=== PATIENT | male | born 1950 | race Caucasian/White ===

== ENCOUNTER 2019-05-24 11:49 | Emergency (ER) | payer MEDICARE, OTHER ==
[~2019-05-24] VITALS: Ht 175.3 cm; Wt 75.4 kg
--- NOTE | 2019-05-24 12:40 | Diagnostic Imaging Report ---
INDICATION: Fall. COMPARISON: None available. TECHNIQUE: Single radiograph of the chest dated May 24, 2019. FINDINGS: Pacer device is present with a battery pack overlying the left chest. Postsurgical changes of a CABG. The cardiac silhouette is within normal limits in size. No significant pulmonary vascular congestion. The lungs are clear. No pleural effusion. No pneumothorax. No acute osseous abnormality. IMPRESSION: Postsurgical changes without acute cardiopulmonary abnormality. Dictated by: Dictated on workstation # [id number]
--- NOTE | 2019-05-24 12:48 | Diagnostic Imaging Report ---
PROCEDURE: CT head and CT cervical spine without contrast. TECHNIQUE: Multiple contiguous axial images were obtained through the brain and cervical spine without the use of intravenous contrast. Sagittal and coronal reformations through the cervical spine were then performed. Auto Exposure Controls were utilized during the CT exam to meet ALARA standards for radiation dose reduction. INDICATION: Fall with head injury. COMPARISON: None. FINDINGS: CT head: The ventricles and cortical sulci are diffusely prominent, compatible with age-related volume loss. There are confluent areas of abnormal, low attenuation in the periventricular white matter. This is consistent with small vessel ischemic changes; age-indeterminate. There is no prior study available for comparison. There is no midline shift or mass-effect. No acute intra-axial hemorrhage is seen. There are no abnormal areas of increased or decreased density to suggest acute hemorrhage or edema. No extra-axial masses or collections are present. The bony calvarium is intact. The visualized paranasal sinuses are unremarkable. The mastoid air cells are partially opacified on the left. CT cervical spine: Static alignment of the lumbar spine is maintained. There is no significant anteroretrolisthesis. There is no evidence of jumped facets. Vertebral body heights are maintained. There is no evidence of acute fracture. No bony fragments are seen within the spinal canal. There are multilevel degenerative changes consistent with intervertebral disc height loss with anterior and posterior disc osteophyte complex formations, as well as multilevel facet arthropathy. These changes appear greatest at the C5-C6 and C6-C7 level. Pre and paravertebral soft tissue structures are unremarkable. Included portions of lung apices are clear. IMPRESSION: 1. No acute intracranial abnormality. No CT evidence of mass, acute infarct or intracranial hemorrhage. 2. Small vessel ischemic changes in the periventricular and subcortical white matter; likely chronic. 3. No acute fracture or dislocation of cervical spine. 4. Multilevel degenerative changes, greatest at C5-C6 and C6-C7. Dictated by: Dictated on workstation # [id number]
[2019-05-24 12:59] LABS: HEMATOCRIT 41 % (40-54); HEMOGLOBIN 13.2 G/DL (13.3-17.7); MEAN CORPUSCULAR HEMOGLOBIN 29 PG (25-34); MEAN CORPUSCULAR HGB CONC 32 G/DL (32-36); MEAN CORPUSCULAR VOLUME 90 FL (80-99); WHITE BLOOD COUNT 11.6 10^3/uL (4.3-11.0)
[2019-05-24 13:00] LABS: BASOPHILS % (AUTO) 0 % (0-10); EOSINOPHILS # (AUTO) 0.1 10^3/uL (0.0-0.3); EOSINOPHILS % (AUTO) 1 % (0-10); LYMPHOCYTES # (AUTO) 4.9 X 10^3 (1.0-4.0); LYMPHOCYTES % (AUTO) 43 % (12-44); MEAN PLATELET VOLUME 9.6 FL (7.4-10.4); MONOCYTES # (AUTO) 0.9 X 10^3 (0.0-1.0); MONOCYTES % (AUTO) 8 % (0-12); NEUTROPHILS # (AUTO) 5.6 X 10^3 (1.8-7.8); NEUTROPHILS % (AUTO) 48 % (42-75); PLATELET COUNT 231 10^3/uL (130-400); RED CELL DISTRIBUTION WIDTH 13.8 % (10.0-14.5)
--- NOTE | 2019-05-24 13:14 | ED General ---
General Chief Complaint: Trauma-Non Activation Stated Complaint: FALL; TREMORS; HEAD INJ Nursing Triage Note: Patient's states patient has advanced Alzheimer's disease, states patient fell Friday from a barstool and today at 3:30 am fell and pulled a chair over onto himself. She states patient has had generalized tremors for the last 3 hours, states this is a new problem for patient. She also states patient did not have previous problems with frequent falls and that this is a new problem as well. Nursing Sepsis Screen: No Definite Risk Source of Information: Patient, Spouse Exam Limitations: Other (dementia) History of Present Illness Date Seen by Provider: May 24, 2019 Time Seen by Provider: 12:30 Initial Comments The patient is a pleasant 69-year-old male presents for evaluation after a fall. The patient's spouse is the primary historian as the patient has a history of Alzheimer's disease. On Friday the patient fell off a barstool and then today around 3:30 AM the patient fell and pulled a chair on top of himself. His states that approximately 45 minutes to an hour later he developed some tremors which lasted 3 hours. She denies ever seeing similar tremors previously. During the tremors the patient was fully awake and alert and able to speak normally. The patient did not lose consciousness from the fall and has denied any ankle complaints to his . Upon arrival the patient has no complaints. Timing/Duration: 1-2 Days Severity: Mild Allergies and Home Medications Allergies Coded Allergies: No Known Drug Allergies (Unverified , 05/24/19) Patient Home Medication List Home Medication List Reviewed: Yes Review of Systems Review of Systems Constitutional: no symptoms reported EENTM: no symptoms reported; No blurred vision, No double vision, No throat pain Respiratory: no symptoms reported; No short of breath, No stridor Cardiovascular: no symptoms reported; No edema, No palpitations, No syncope Gastrointestinal: no symptoms reported; No diarrhea, No nausea Genitourinary: no symptoms reported; No hematuria, No pain Musculoskeletal: no symptoms reported Skin: no symptoms reported Psychiatric/Neurological: No Symptoms Reported, See HPI; Denies Paresthesia, Denies Seizure, Denies Tingling Hematologic/Lymphatic: No Symptoms Reported, See HPI; Denies Anemia, Denies Blood Clots, Denies Other Immunological/Allergic: no symptoms reported; denies see HPI, denies transplant Past Tcjtisf-Gthafj-Qnsbem Hx Past Med/Social Hx: Reviewed Nursing Past Med/Soc Hx Patient Social History Recent Foreign Travel: No Contact w/Someone Who Travel: No Recent Infectious Disease Expo: No Physical Exam Vital Signs Vital Signs - First Documented Capillary Refill : Less Than 3 Seconds Height, Weight, BMI Height: '" Weight: lbs. oz. kg; 24.00 BMI Method: General Appearance: No Apparent Distress, WD/WN HEENT: PERRL/EOMI, Pharynx Normal Neck: Full Range of Motion, Non Tender, Supple Respiratory: Chest Non Tender, Lungs Clear, Normal Breath Sounds, No Accessory Muscle Use, No Respiratory Distress Cardiovascular: Regular Rate, Rhythm, No Edema, No Murmur Gastrointestinal: Normal Bowel Sounds, No Pulsatile Mass, Non Tender, Soft Extremity: Normal Capillary Refill, Normal Range of Motion, Non Tender Neurologic/Psychiatric: Alert, No Motor/Sensory Deficits, Normal Mood/Affect Skin: Normal Color, Warm/Dry Progress/Results/Core Measures Suspected Sepsis Recent Fever Within 48 Hours: No Infection Criteria Present: None New/Unexplained Altered Menta: No Sepsis Screen: No Definite Risk SIRS Temperature: Pulse: 62 Respiratory Rate: 20 Laboratory Tests 05/24/19 12:35: White Blood Count 11.6H Blood Pressure 100 /69 Mean: 79 Laboratory Tests 05/24/19 12:35: Creatinine 1.02, Platelet Count 231, Total Bilirubin 0.5 Results/Orders Lab Results Laboratory Tests Test 05/24/19 12:35 05/24/19 13:00 Range/Units White Blood Count 11.6 H 4.3-11.0 10^3/uL Red Blood Count 4.53 4.35-5.85 10^6/uL Hemoglobin 13.2 L 13.3-17.7 G/DL Hematocrit 41 40-54 % Mean Corpuscular Volume 90 80-99 FL Mean Corpuscular Hemoglobin 29 25-34 PG Mean Corpuscular Hemoglobin Concent 32 32-36 G/DL Red Cell Distribution Width 13.8 10.0-14.5 % Platelet Count 231 130-400 10^3/uL Mean Platelet Volume 9.6 7.4-10.4 FL Neutrophils (%) (Auto) 48 42-75 % Lymphocytes (%) (Auto) 43 12-44 % Monocytes (%) (Auto) 8 0-12 % Eosinophils (%) (Auto) 1 0-10 % Basophils (%) (Auto) 0 0-10 % Neutrophils # (Auto) 5.6 1.8-7.8 X 10^3 Lymphocytes # (Auto) 4.9 H 1.0-4.0 X 10^3 Monocytes # (Auto) 0.9 0.0-1.0 X 10^3 Eosinophils # (Auto) 0.1 0.0-0.3 10^3/uL Basophils # (Auto) 0.0 0.0-0.1 10^3/uL Sodium Level 141 135-145 MMOL/L Potassium Level 4.3 3.6-5.0 MMOL/L Chloride Level 101 98-107 MMOL/L Carbon Dioxide Level 27 21-32 MMOL/L Anion Gap 13 5-14 MMOL/L Blood Urea Nitrogen 21 H 7-18 MG/DL Creatinine 1.02 0.60-1.30 MG/DL Estimat Glomerular Filtration Rate > 60 BUN/Creatinine Ratio 21 Glucose Level 81 70-105 MG/DL Calcium Level 9.2 8.5-10.1 MG/DL Corrected Calcium 9.0 8.5-10.1 MG/DL Magnesium Level 2.2 1.6-2.4 MG/DL Total Bilirubin 0.5 0.1-1.0 MG/DL Aspartate Amino Transf (AST/SGOT) 23 5-34 U/L Alanine Aminotransferase (ALT/SGPT) 29 0-55 U/L Alkaline Phosphatase 64 40-136 U/L Troponin I < 0.30 <0.30 NG/ML Total Protein 6.7 6.4-8.2 GM/DL Albumin 4.2 3.2-4.5 GM/DL Urine Color YELLOW Urine Clarity CLEAR Urine pH 6.5 5-9 Urine Specific Richardson 1.010 L 1.016-1.022 Urine Protein NEGATIVE NEGATIVE Urine Glucose (UA) NEGATIVE NEGATIVE Urine Ketones NEGATIVE NEGATIVE Urine Nitrite NEGATIVE NEGATIVE Urine Bilirubin NEGATIVE NEGATIVE Urine Urobilinogen 0.2 NORMAL MG/DL Urine Leukocyte Esterase NEGATIVE NEGATIVE Urine RBC (Auto) NEGATIVE NEGATIVE Urine RBC NONE /HPF Urine WBC NONE /HPF Urine Squamous Epithelial Cells RARE /HPF Urine Crystals NONE /LPF Urine Bacteria NONE /HPF Urine Casts NONE /LPF Urine Mucus TRACE /LPF Urine Culture Indicated NO My Orders Orders - NASRA ESPINOZA DO Cbc With Automated Diff (05/24/19 12:04) Comprehensive Metabolic Panel (05/24/19 12:04) Magnesium (05/24/19 12:04) Ua Culture If Indicated (05/24/19 12:04) Ekg Tracing (05/24/19 12:04) Continuous Ekg Monitoring (05/24/19 12:04) Chest 1 View Ap/Pa Only (05/24/19 12:04) Troponin I Fs (05/24/19 12:04) Ct Head/Cervical Spine Wo (05/24/19 12:04) Vital Signs/I&O 05/24/19 05/24/19 05/24/19 12:05 12:05 13:42 Temp 36.7 36.7 Pulse 62 62 67 69 Resp 20 20 B/P (MAP) 100/69 (79) 100/69 (79) 101/61 (74) 86/56 (66) 104/68 (80) Pulse Ox 97 97 O2 Delivery Room Air Room Air Capillary Refill : Less Than 3 Seconds Blood Pressure Mean: 79 POS Progress Note : Progress Note @1530 - patient and family updated on lab and imaging results which were unremarkable. The patient states he is feeling fine and wants to go home. His is comfortable taking him home at this time. Advise close follow-up with their primary care physician within the next 2-3 days and return to the emergency Department immediately for new or worsening symptoms. ECG Comment EKG@1259 - paced rhythm, rate of 62, no acute ischemic findings noted, no STEMI, reviewed and interpreted by myself Diagnostic Imaging Comments [facility]. POS [place], [place] POS NAME: STEPHANIE DAWSON [facility] REC#: [id number] PT STATUS: REG ER : 1950 PHYSICIAN: NASRA ESPINOZA DO ADMIT DATE: 05/24/19/ER FS Draft POSDate of Exam:05/24/19 CT HEAD/CERVICAL SPINE WO PROCEDURE: CT head and CT cervical spine without contrast. TECHNIQUE: Multiple contiguous axial images were obtained through the brain and cervical spine without the use of intravenous contrast. Sagittal and coronal reformations through the cervical spine were then performed. Auto Exposure Controls were utilized during the CT exam to meet ALARA standards for radiation dose reduction. INDICATION: Fall with head injury. COMPARISON: None. FINDINGS: CT head: The ventricles and cortical sulci are diffusely prominent, compatible with age-related volume loss. There are confluent areas of abnormal, low attenuation in the periventricular white matter. This is consistent with small vessel ischemic changes; age-indeterminate. There is no prior study available for comparison. There is no midline shift or mass-effect. No acute intra-axial hemorrhage is seen. There are no abnormal areas of increased or decreased density to suggest acute hemorrhage or edema. No extra-axial masses or collections are present. The bony calvarium is intact. The visualized paranasal sinuses are unremarkable. The mastoid air cells are partially opacified on the left. CT cervical spine: Static alignment of the lumbar spine is maintained. There is no significant anteroretrolisthesis. There is no evidence of jumped facets. Vertebral body heights are maintained. There is no evidence of acute fracture. No bony fragments are seen within the spinal canal. There are multilevel degenerative changes consistent with intervertebral disc height loss with anterior and posterior disc osteophyte complex formations, as well as multilevel facet arthropathy. These changes appear greatest at the C5-C6 and C6-C7 level. Pre and paravertebral soft tissue structures are unremarkable. Included portions of lung apices are clear. IMPRESSION: 1. No acute intracranial abnormality. No CT evidence of mass, acute infarct or intracranial hemorrhage. 2. Small vessel ischemic changes in the periventricular and subcortical white matter; likely chronic. 3. No acute fracture or dislocation of cervical spine. 4. Multilevel degenerative changes, greatest at C5-C6 and C6-C7. Dictated on workstation # [id number] Dict: 05/24/19 1234 Trans: 05/24/19 1248 [facility] [id number] Interpreted by: YULI DIEZ MD Electronically signed by: Departure Impression Primary Impression: Fall with no significant injury Disposition: 01 HOME, SELF-CARE Condition: Stable Departure-Patient Inst. Decision time for Depature: 15:31 Referrals: IWONA WYMAN MD (PCP/Family) Primary Care Physician Patient Instructions: Preventing Falls in the Older Adult Add. Discharge Instructions: Follow-up with your doctor in the next 1-2 days. Return to the emergency Department immediately for new or worsening symptoms. NASRA ESPINOZA DO May 24, 2019 13:14 POS
[2019-05-24 13:23] LABS: ALANINE AMINOTRANSFERASE 29 U/L (0-55); ALKALINE PHOSPHATASE 64 U/L (40-136); BILIRUBIN,TOTAL 0.5 MG/DL (0.1-1.0); BUN/CREATININE RATIO 21; CALCIUM 9.2 MG/DL (8.5-10.1); CARBON DIOXIDE 27 MMOL/L (21-32); CHLORIDE 101 MMOL/L (98-107); CREATININE SERUM 1.02 MG/DL (0.60-1.30); GFR ESTIMATED > 60; GLUCOSE 81 MG/DL (70-105); MAGNESIUM 2.2 MG/DL (1.6-2.4); POTASSIUM 4.3 MMOL/L (3.6-5.0); SODIUM 141 MMOL/L (135-145)
[2019-05-24 13:24] LABS: ALBUMIN 4.2 GM/DL (3.2-4.5); TOTAL PROTEIN 6.7 GM/DL (6.4-8.2)
[2019-05-24 13:40] LABS: BILIRUBIN,URINE NEGATIVE (NEGATIVE); CLARITY,URINE CLEAR; COLOR,URINE YELLOW; GLUCOSE, URINE (UA) NEGATIVE (NEGATIVE); KETONES,URINE NEGATIVE (NEGATIVE); LEUKOCYTE ESTERASE ,URINE NEGATIVE (NEGATIVE); NITRITE,URINE NEGATIVE (NEGATIVE); PH,URINE 6.5 (5-9); PROTEIN,URINE NEGATIVE (NEGATIVE); SQUAMOUS EPITHELIAL CELL,UR RARE /HPF
[2019-05-24 13:42] VITALS: BP_SYST 101; BP_SYST 104; BP_SYST 86; BP_DIAS 56; BP_DIAS 61; BP_DIAS 68
[2019-05-24 15:45] VITALS: BP 125/71
== END 2019-05-24 15:48 | disposition home or self-care (01) ==
LOC: EDUNIT# 11:49 → ER FS 11:50
DX: Z04.3 Encounter for examination and observation following other accident (principal); G30.9 Alzheimer's disease, unspecified; F02.80 Dementia in other diseases classified elsewhere, unspecified severity, without behavioral disturbance, psychotic disturbance, mood disturbance, and anxiety
CPT/HCPCS: 36415; 70450; 71045; 72125; 80053; 81000; 83735; 84484; 85025; 93005

== ENCOUNTER → 2019-09-23 | Outpatient (CLI) | payer MEDICARE, OTHER ==
--- NOTE | 2019-09-23 18:21 | Diagnostic Imaging Report ---
EXAMINATION: Right knee radiographs, 3 views. COMPARISON: None. HISTORY: 69-year-old male, right knee pain. Swelling. FINDINGS: There are surgical clips in the medial soft tissues. There is a bipartite patella. There is severe patellofemoral compartment joint space loss. There is no knee joint effusion. There is no pronounced narrowing of the medial or lateral compartments. There is no identified acute fracture. IMPRESSION: 1. Severe fairly isolated patellofemoral compartment arthritis without knee joint effusion. 2. Bipartite patella. Dictated by: Dictated on workstation # [id number]
== END ==
LOC: RAD FS 15:05
PROVIDERS: ATTEND Family Medicine
DX: M17.11 Unilateral primary osteoarthritis, right knee (principal); Q74.1 Congenital malformation of knee
CPT/HCPCS: 73562

== ENCOUNTER → 2020-04-07 | Outpatient (CLI) | payer MEDICARE, OTHER ==
[2020-04-07 12:40] LABS: BUN/CREATININE RATIO 14; CALCIUM 8.7 MG/DL (8.5-10.1); CARBON DIOXIDE 28 MMOL/L (21-32); CHLORIDE 105 MMOL/L (98-107); GFR ESTIMATED > 60; GLUCOSE 103 MG/DL (70-105); POTASSIUM 3.5 MMOL/L (3.6-5.0); SODIUM 142 MMOL/L (135-145)
== END ==
LOC: LAB FS 11:52
PROVIDERS: ATTEND Family Medicine
DX: I10 Essential (primary) hypertension (principal)
CPT/HCPCS: 36415; 80048

== ENCOUNTER 2020-04-10 13:40 | Inpatient (IN) | payer MEDICARE, OTHER ==
[2020-04-10] VITALS (8 sets, daily range): BP systolic 116–145; BP diastolic 64–84
[2020-04-10] MEDS ORDERED: PANTOPRAZOLE 40 MG (PROTONIX) VIAL ONE (13:43)
[2020-04-10] MEDS ORDERED: NS IV 1000 ML 1,000 ML ONE (13:43)
[2020-04-10 13:54] LABS: HEMATOCRIT 35 % (40-54); HEMOGLOBIN 11.4 G/DL (13.3-17.7); MEAN CORPUSCULAR HEMOGLOBIN 29 PG (25-34); MEAN CORPUSCULAR HGB CONC 32 G/DL (32-36); MEAN CORPUSCULAR VOLUME 89 FL (80-99); MEAN PLATELET VOLUME 9.6 FL (7.4-10.4); NEUTROPHILS % (AUTO) 53 % (42-75); PLATELET COUNT 217 10^3/uL (130-400); WHITE BLOOD COUNT 11.6 10^3/uL (4.3-11.0)
[2020-04-10 13:55] LABS: BASOPHILS % (AUTO) 0 % (0-10); EOSINOPHILS # (AUTO) 0.1 10^3/uL (0.0-0.3); EOSINOPHILS % (AUTO) 1 % (0-10); LYMPHOCYTES # (AUTO) 4.6 X 10^3 (1.0-4.0); LYMPHOCYTES % (AUTO) 40 % (12-44); MONOCYTES # (AUTO) 0.7 X 10^3 (0.0-1.0); MONOCYTES % (AUTO) 6 % (0-12); NEUTROPHILS # (AUTO) 6.2 X 10^3 (1.8-7.8)
[2020-04-10] MEDS ORDERED: PANTOPRAZOLE INJECTION 200 MG in NS (IVPB) 100 ML IV SCH (14:00)
[2020-04-10] MEDS ORDERED: PANTOPRAZOLE 40 MG (PROTONIX) VIAL IV ONE (14:00)
[2020-04-10] MEDS ORDERED: NS IV 1000 ML 1,000 ML IV SCH ×2 (14:00→14:15)
[2020-04-10 14:10] LABS: INR 1.1 (0.8-1.4); PROTHROMBIN TIME PATIENT 14.1 SEC (12.2-14.7)
[2020-04-10 14:11] LABS: CARBON DIOXIDE 28 MMOL/L (21-32); CHLORIDE 102 MMOL/L (98-107); POTASSIUM 3.6 MMOL/L (3.6-5.0); SODIUM 140 MMOL/L (135-145)
--- NOTE | 2020-04-10 14:11 | ED General ---
General Chief Complaint: Abdominal/GI Problems Stated Complaint: BLOOD IN STOOL History of Present Illness Date Seen by Provider: Apr 10, 2020 Time Seen by Provider: 14:06 Initial Comments Patient presenting to the emergency department for evaluation of an apparent GI bleed that the skilled nursing thinks started this morning as I noted dark red blood with his bowel movement. I spoke to his Anastasiia at length as patient has Alzheimer's and cannot provide any meaningful information. She says that she was able to visit him on Friday which would be 2 days ago and he was having nausea and appeared to be weak however yesterday he seemed to be doing better. Patient is pleasant and smiling and denies any pain to me and had no pain on abdominal exam. He takes a baby aspirin daily and intermittent ibuprofen but no other blood thinners on his medication list that I could find. I asked the . Is ever done this before in the past and she said no. He is hypotensive but not tachycardic as he is on a beta joe and has a pacemaker. Allergies and Home Medications Allergies Coded Allergies: No Known Drug Allergies (Unverified , 05/24/19) Patient Home Medication List Home Medication List Reviewed: Yes Review of Systems Review of Systems Constitutional: no symptoms reported EENTM: no symptoms reported Respiratory: no symptoms reported Cardiovascular: no symptoms reported Gastrointestinal: melena Genitourinary: no symptoms reported Musculoskeletal: no symptoms reported Skin: no symptoms reported Psychiatric/Neurological: No Symptoms Reported All Other Systems Reviewed Negative Unless Noted: Yes Past Sxxpaab-Cwremw-Dtlfql Hx Patient Social History Alcohol Use: Denies Use Recreational Drug Use: No Smoking Status: Never a Smoker 2nd Hand Smoke Exposure: No Recent Hopitalizations: No Physical Abuse: No Sexual Abuse: No Mistreated: No Fear: No Seasonal Allergies Seasonal Allergies: No Past Medical History Surgeries: Yes CABG, Pacemaker Respiratory: No Cardiac: Yes (Pacemaker) Heart Attack, Heart Murmur, High Cholesterol, Hypertension Neurological: Yes (Alzheimer's) Dementia Genitourinary: No Gastrointestinal: No Musculoskeletal: No Endocrine: Yes Hypothyroidsim HEENT: Yes (SINUSITIS) Cancer: No Psychosocial: No Integumentary: No Blood Disorders: No Physical Exam Vital Signs Capillary Refill : Height, Weight, BMI Height: '" Weight: lbs. oz. kg; 24.00 BMI Method: General Appearance: No Apparent Distress, Chronically ill HEENT: Pharynx Normal Neck: Supple Respiratory: No Respiratory Distress Cardiovascular: Regular Rate, Rhythm Gastrointestinal: Non Tender, Soft Genital/Rectal: Heme Positive Stool, Other (DARK RED STOOL PER RECTUM) Back: Normal Inspection Extremity: No Pedal Edema Neurologic/Psychiatric: Alert Skin: Warm/Dry Progress/Results/Core Measures Suspected Sepsis SIRS Temperature: Pulse: Respiratory Rate: Laboratory Tests 04/10/20 13:45: White Blood Count 11.6H Blood Pressure / Mean: Laboratory Tests 04/10/20 13:45: Platelet Count 217 Results/Orders Lab Results Laboratory Tests Test 04/10/20 13:45 Range/Units White Blood Count 11.6 H 4.3-11.0 10^3/uL Red Blood Count 3.95 L 4.35-5.85 10^6/uL Hemoglobin 11.4 L 13.3-17.7 G/DL Hematocrit 35 L 40-54 % Mean Corpuscular Volume 89 80-99 FL Mean Corpuscular Hemoglobin 29 25-34 PG Mean Corpuscular Hemoglobin Concent 32 32-36 G/DL Red Cell Distribution Width 13.8 10.0-14.5 % Platelet Count 217 130-400 10^3/uL Mean Platelet Volume 9.6 7.4-10.4 FL Neutrophils (%) (Auto) 53 42-75 % Lymphocytes (%) (Auto) 40 12-44 % Monocytes (%) (Auto) 6 0-12 % Eosinophils (%) (Auto) 1 0-10 % Basophils (%) (Auto) 0 0-10 % Neutrophils # (Auto) 6.2 1.8-7.8 X 10^3 Lymphocytes # (Auto) 4.6 H 1.0-4.0 X 10^3 Monocytes # (Auto) 0.7 0.0-1.0 X 10^3 Eosinophils # (Auto) 0.1 0.0-0.3 10^3/uL Basophils # (Auto) 0.0 0.0-0.1 10^3/uL My Orders Orders - CHUCK FAM DO Ns Iv 1000 Ml (Sodium Chloride 0.9%) (04/10/20 13:43) Cbc With Automated Diff (04/10/20 13:48) Comprehensive Metabolic Panel (04/10/20 13:48) Partial Thromboplastin Time (04/10/20 13:48) Protime With Inr (04/10/20 13:48) Iv/Invasive Line Insertion .IV start (04/10/20 13:48) Ns Iv 1000 Ml (Sodium Chloride 0.9%) (04/10/20 14:00) Pantoprazole Injection (Protonix Injecti (04/10/20 14:00) Ns (Ivpb) (Sodium C... W/Pantoprazole In (04/10/20 14:00) Pantoprazole Injection (Protonix Injecti (04/10/20 13:43) Ns Iv 1000 Ml (Sodium Chloride 0.9%) (04/10/20 14:15) Lr 1000 Ml Wide Open (04/10/20 14:15) Medications Given in ED Current Medications Medications Dose Ordered Sig/Eamon Route Start Time Stop Time Status Last Admin Dose Admin Pantoprazole 80 mg ONCE ONCE IV 04/10/20 14:00 04/10/20 14:01 DC 04/10/20 13:53 80 MG Vital Signs/I&O Capillary Refill : Progress Note : Progress Note Patient is quite ill as he is hypotensive from his GI bleed which I suspect is more likely a lower source such as diverticular but I certainly cannot be sure. I will go ahead and start him on Protonix bolus Protonix drip and I considered starting him on pressors after my conversation with Dr. Aguirre will give 3 L of IV fluids and then reassess the need for pressors. Given we cannot do a type and screen or give him crossmatch blood here with plan for emergent transfer to [place]. Dr. Hernandez the general surgeon has been consulted. I spoke to his Anastasiia at length and she said she is okay with a transfusion if needed but would like to have further conversations about further invasive testing and/or treatment. Patient transferred in critical condition. Critical Care Note Critical Care Total Time (minutes) 38 Departure Impression Primary Impression: GI bleed Qualified Codes: K92.2 - Gastrointestinal hemorrhage, unspecified Additional Impressions: Hypotension Qualified Codes: I95.89 - Other hypotension; E86.1 - Hypovolemia Anemia Disposition: ADMITTED INPATIENT Condition: Critical Transfer Transfer Reason: Exceeds level of care Time Spoke to Accepting Phy: 14:00 Transfer Facility: [facility] Method of Transfer: EMS Departure-Patient Inst. Referrals: IWONA WYMAN MD (PCP/Family) Primary Care Physician CHUCK FAM DO Apr 10, 2020 14:11
[2020-04-10 14:12] LABS: ALANINE AMINOTRANSFERASE 16 U/L (0-55); ALBUMIN 3.7 GM/DL (3.2-4.5); ALKALINE PHOSPHATASE 76 U/L (40-136); BILIRUBIN,TOTAL 0.3 MG/DL (0.1-1.0); BUN/CREATININE RATIO 21; CALCIUM 8.6 MG/DL (8.5-10.1); GFR ESTIMATED > 60; GLUCOSE 131 MG/DL (70-105)
[2020-04-10] MEDS ORDERED: LACTATED RINGERS 1,000 ML IV SCH (14:15)
[2020-04-10] MEDS ORDERED: PANTOPRAZOLE DRIP 200 MG/NS 100 ML IV SCH ×2 (16:30)
[2020-04-10] MEDS ORDERED: CATHETER FLUSH 10 ML SYR IV PRN (16:30)
--- NOTE | 2020-04-10 16:31 | Consultation - Surgery ---
[employer] STUDENT 04/10/20 1631: History of Present Illness History of Present Illness Patient Consulted On(catie/time) 04/10/20 16:26 Date Seen by Provider: Apr 10, 2020 Time Seen by Provider: 16:27 History of Present Illness surgery consult re: gi bleed HPI per ED: Patient presenting to the emergency department for evaluation of an apparent GI bleed that the halfway thinks started this morning as I noted dark red blood with his bowel movement. I spoke to his Anastasiia at length as patient has Alzheimer's and cannot provide any meaningful information. She says that she was able to visit him on Friday which would be 2 days ago and he was having nausea and appeared to be weak however yesterday he seemed to be doing better. Patient is pleasant and smiling and denies any pain to me and had no pain on abdominal exam. He takes a baby aspirin daily and intermittent ibuprofen but no other blood thinners on his medication list that I could find. I asked the . Is ever done this before in the past and she said no. He is hypotensive but not tachycardic as he is on a beta joe and has a pacemaker. pt is presenting with bloody bowel movements.halfway stated that this started this morning 04/10/20. pt denies any nausea, vomiting or abdominal pain currently. pt was unable to answer most questions or relay history because of Alzheimer's diagnosis. Allergies and Home Medications Allergies Coded Allergies: lisinopril (Verified Allergy, Unknown, 04/10/20) Past Xzvpzii-Rcsqfb-Rouukk Hx Patient Social History Alcohol Use: Denies Use Recreational Drug Use: No Smoking Status: Never a Smoker 2nd Hand Smoke Exposure: No Recent Foreign Travel: No Contact w/Someone Who Travel: No Recent Infectious Disease Expo: No Recent Hopitalizations: No Seasonal Allergies Seasonal Allergies: No Surgeries History of Surgeries: Yes Surgeries: CABG, Pacemaker Respiratory History of Respiratory Disorde: No Cardiovascular History of Cardiac Disorders: Yes (Pacemaker) Cardiac Disorders: Heart Attack, Heart Murmur, High Cholesterol, Hypertension Neurological History of Neurological Disord: Yes (Alzheimer's) Neurological Disorders: Dementia Genitourinary History of Genitourinary Disor: No Gastrointestinal History of Gastrointestinal Di: No Musculoskeletal History of Musculoskeletal Dis: No Endocrine History of Endocrine Disorders: Yes Endocrine Disorders: Hypothyroidsim HEENT History of HEENT Disorders: No Cancer History of Cancer: No Psychosocial History of Psychiatric Problem: No Integumentary History of Skin or Integumenta: No Blood Transfusions History of Blood Disorders: No Review of Systems-General Constitutional: No chills, No fever, No weakness Respiratory: No cough, No short of breath Cardiovascular: No chest pain, No palpitations Gastrointestinal: No abdominal pain, No constipation, No diarrhea, No nausea, No vomiting Physical Exam-General Problems Physical Exam Vital Signs Vital Signs - First Documented 04/10/20 13:42 Temp 36.0 Pulse 63 Resp 14 B/P (MAP) 90/74 (79) Pulse Ox 93 O2 Delivery Room Air Capillary Refill : Less Than 3 Seconds General Appearance: WD/WN, no apparent distress HEENT: PERRL/EOMI; No scleral icterus (R), No scleral icterus (L) Neck: non-tender; No lymphadenopathy (R), No lymphadenopathy (L) Respiratory: chest non-tender, lungs clear, normal breath sounds, no respiratory distress, no accessory muscle use Cardiovascular: regular rate, rhythm, diastolic murmur Peripheral Pulses: 2+ Carotid (R), 2+ Carotid (L), 2+ Dorsalis Pedis (R), 2+ Left Dors-Pedis (L), 2+ Radial Pulses (R), 2+ Radial Pulses (L) Gastrointestinal: normal bowel sounds, non tender, soft Extremities: normal capillary refill Neurologic/Psychiatric: clinical tech II-XII nml as tested, no motor/sensory deficits, normal mood/affect, disoriented x 3 Skin: normal color, warm/dry; No diaphoresis Lymphatic: no adenopathy Data Review Labs Laboratory Tests 04/10/20 13:45: White Blood Count 11.6H, Red Blood Count 3.95L, Hemoglobin 11.4L, Hematocrit 35L , Mean Corpuscular Volume 89, Mean Corpuscular Hemoglobin 29, Mean Corpuscular Hemoglobin Concent 32, Red Cell Distribution Width 13.8, Platelet Count 217, Mean Platelet Volume 9.6, Neutrophils (%) (Auto) 53, Lymphocytes (%) (Auto) 40, Monocytes (%) (Auto) 6, Eosinophils (%) (Auto) 1, Basophils (%) (Auto) 0, Neutrophils # (Auto) 6.2, Lymphocytes # (Auto) 4.6H, Monocytes # (Auto) 0.7, Eosinophils # (Auto) 0.1, Basophils # (Auto) 0.0, Prothrombin Time 14.1, INR Comment 1.1, Activated Partial Thromboplast Time 24, Sodium Level 140, Potassium Level 3.6, Chloride Level 102, Carbon Dioxide Level 28, Anion Gap 10, Blood Urea Nitrogen 21H, Creatinine 1.00, Estimat Glomerular Filtration Rate > 60, BUN/Creatinine Ratio 21, Glucose Level 131H, Calcium Level 8.6, Corrected Calcium 8.8, Total Bilirubin 0.3, Aspartate Amino Transf (AST/SGOT) 14, Alanine Aminotransferase (ALT/SGPT) 16, Alkaline Phosphatase 76, Total Protein 6.0L, Albumin 3.7 Assessment/Plan Assessment/Plan Assessment/Plan GI Bleed GAYLA HERNANDEZ DO 04/10/20 1748: History of Present Illness History of Present Illness Time Seen by Provider: 17:21 History of Present Illness Pt was seen and examined, with his in the room. Pt has advanced Alzheimers and can't really answer questions. denies he has ever had anemia or GI bleed before. She also states that his last colonoscopy was more than 10 yrs ago. She relays the info that staff at the assisted living facility noticed blood when they were showering him this am. Allergies and Home Medications Allergies Coded Allergies: lisinopril (Verified Allergy, Unknown, 04/10/20) Patient Home Medication List Home Medication List Reviewed: Yes Past Zdutpgu-Bofzoz-Riaxlj Hx Surgeries History of Surgeries: Yes Respiratory History of Respiratory Disorde: No Cardiovascular History of Cardiac Disorders: Yes Neurological History of Neurological Disord: Yes Family Medical History Significant Family History: Heart Disease, Other Conditions/Hx (Mother had Alzheimers) Review of Systems-General ROS-Unable to Obtain: pt unable to relate any Physical Exam-General Problems Physical Exam General Appearance: WD/WN, no apparent distress Eyes: Bilateral Eye PERRL, Bilateral Eye EOMI HEENT: pharynx normal; No scleral icterus (R), No scleral icterus (L) Neck: non-tender; No thyromegaly Respiratory: chest non-tender, lungs clear, normal breath sounds, no respiratory distress, no accessory muscle use Cardiovascular: regular rate, rhythm, systolic murmur Gastrointestinal: non tender, soft, no organomegaly; No distended Back: no CVA tenderness, no vertebral tenderness Extremities: no pedal edema, no calf tenderness, normal capillary refill Neurologic/Psychiatric: normal mood/affect, disoriented x 3 Skin: normal color, warm/dry; No diaphoresis Lymphatic: no adenopathy (neck, axilla or groin) Assessment/Plan Assessment/Plan Assessment/Plan Anemia GI bleed Hypotension CAD Alzheimer's Pt is in the ICU for close monitoring because of his hypotension; which seems better now that he has received fluids. He has a pacemaker and is on a Beta joe; so his heart rate may not become tachycardic if he is hypotensive. I had a long discussion with his ; going over options 1) do nothing 2) monitor H/H and can decide to transfuse or not 3) Colonoscopy and possible EGD to find source of bleed 4) possible surgery. thinks surgery is a bad idea, "he won't make it, he barely made it through the CABG five years ago and he is worse now". I told her that his Hemoglobin did not drop that much and it is very reasonable to recheck in the morning and then make a decision about colonoscopy or EGD vs just transfusing. It is possible that his hemoglobin won't drop and he won't need transfusion. I also explained that we could do endoscopy and not find a source or not be able to stop bleeding without major surgery. It is possible that we could find something that could be injected or removed; which might stop bleeding. However, colonoscopy does come with the risk of perforation. Pt's would like to wait until tomorrow to make a decision. Supervisory-Addendum Brief Verification & Attestation Participated in pt care: history, MDM, physical Personally performed: exam, history, MDM Care discussed with: Medical Student Procedures: n/a Verification and Attestation of Medical Student E/M Service A medical student performed and documented this service. I then reviewed and verified all information documented by the medical student and made modifications to such information, when appropriate. I personally performed a physical exam, medical decision making and then discussed any differences between the notes and made revisions as necessary to create one note. Gayla Hernandez , 04/10/20 , 17:55 [employer] Apr 10, 2020 16:31 GAYLA HERNANDEZ DO Apr 10, 2020 17:48
[2020-04-10 16:59] LABS: BASOPHILS % (AUTO) 0 % (0-10); EOSINOPHILS # (AUTO) 0.2 10^3/uL (0.0-0.3); EOSINOPHILS % (AUTO) 2 % (0-10); HEMATOCRIT 33 % (40-54); HEMOGLOBIN 10.6 G/DL (13.3-17.7); LYMPHOCYTES % (AUTO) 41 % (12-44); MEAN CORPUSCULAR HEMOGLOBIN 29 PG (25-34); MEAN CORPUSCULAR HGB CONC 32 G/DL (32-36); MEAN CORPUSCULAR VOLUME 89 FL (80-99); MEAN PLATELET VOLUME 9.9 FL (7.4-10.4); MONOCYTES # (AUTO) 0.8 X 10^3 (0.0-1.0); MONOCYTES % (AUTO) 8 % (0-12); NEUTROPHILS # (AUTO) 4.8 X 10^3 (1.8-7.8); NEUTROPHILS % (AUTO) 49 % (42-75); PLATELET COUNT 188 10^3/uL (130-400); WHITE BLOOD COUNT 9.9 10^3/uL (4.3-11.0)
[2020-04-10] MEDS ORDERED: LACTATED RINGERS 1,000 ML IV ONE (17:30)
[2020-04-10] MEDS ORDERED: FLU QUAD HIGH DOSE 240 MCG/0.7 ML 2020-21 (FLUZONE) IM ONE (17:30)
[2020-04-10] MEDS: LACTATED RINGERS 1,000 ML IV SCH (17:36)
[2020-04-10 18:16] LABS: BASOPHILS % (MANUAL) 1 %; LYMPHOCYTES % (MANUAL) 49 %; MONOCYTES % (MANUAL) 6 %; NEUTROPHILS % (MANUAL) 44 %; RBC MORPH NORMAL
[2020-04-11] VITALS (17 sets, daily range): BP systolic 111–154; BP diastolic 63–83
[2020-04-11] MEDS: LACTATED RINGERS 1,000 ML IV SCH ×3 (00:54→13:54)
[2020-04-11 03:50] LABS: BASOPHILS % (AUTO) 0 % (0-10); EOSINOPHILS # (AUTO) 0.2 10^3/uL (0.0-0.3); EOSINOPHILS % (AUTO) 2 % (0-10); HEMATOCRIT 29 % (40-54); HEMOGLOBIN 9.2 G/DL (13.3-17.7); LYMPHOCYTES % (AUTO) 47 % (12-44); MEAN CORPUSCULAR HEMOGLOBIN 28 PG (25-34); MEAN CORPUSCULAR HGB CONC 32 G/DL (32-36); MEAN CORPUSCULAR VOLUME 88 FL (80-99); MEAN PLATELET VOLUME 10.1 FL (7.4-10.4); MONOCYTES # (AUTO) 0.7 X 10^3 (0.0-1.0); MONOCYTES % (AUTO) 8 % (0-12); NEUTROPHILS # (AUTO) 3.7 X 10^3 (1.8-7.8); NEUTROPHILS % (AUTO) 43 % (42-75); PLATELET COUNT 175 10^3/uL (130-400); WHITE BLOOD COUNT 8.6 10^3/uL (4.3-11.0)
[2020-04-11 04:03] LABS: CHLORIDE 108 MMOL/L (98-107); POTASSIUM 3.2 MMOL/L (3.6-5.0); SODIUM 140 MMOL/L (135-145)
[2020-04-11 04:04] LABS: CALCIUM 7.8 MG/DL (8.5-10.1); GLUCOSE 88 MG/DL (70-105)
[2020-04-11 04:06] LABS: CARBON DIOXIDE 25 MMOL/L (21-32)
[2020-04-11 04:08] LABS: CREATININE SERUM 0.76 MG/DL (0.60-1.30); GFR ESTIMATED > 60; PHOSPHORUS 3.2 MG/DL (2.3-4.7)
[2020-04-11 04:09] LABS: BUN/CREATININE RATIO 18
[2020-04-11 04:10] LABS: MAGNESIUM 1.6 MG/DL (1.6-2.4)
[2020-04-11] MEDS: POTASSIUM CL 10MEQ/50ML IVPB 50 ML IV SCH ×4 (04:55→08:43)
[2020-04-11] MEDS: MAGNESIUM 1 GM/100 ML IVPB 100 ML IV SCH ×2 (04:56→06:40)
--- NOTE | 2020-04-11 04:58 | Pulmonary Consultation ---
CRISTIAN SUN MED STUDENT 04/11/20 0458: History of Present Illness History of Present Illness Date Seen by Provider: Apr 11, 2020 Time Seen by Provider: 04:45 Date of Admission History of Present Illness Tej Rivera is a 70 year old man seen today due to a GI bleed. When seen this morning he was alert and pleasant, but was unable to describe what had brought him here, and at times struggled to answer ROS questions. According to his record, he had experienced a GI bleed yesterday that was noticed by the staff at his longterm while being showered, and he was hypotensive in the ED. Hypotension resolved with IV fluid. Nursing reports he has had one bowel movement since arriving, no blood in stool noted. Nurse reports he is incontinent of urine and needs padding changed, and has not noted any bleeding on pad. This morning he denies having any pain, light headedness, or SOB. Allergies and Home Medications Allergies Coded Allergies: lisinopril (Verified Allergy, Unknown, 04/10/20) Past Wvcteid-Ewsrpa-Fyteum Hx Patient Social History Alcohol Use: Denies Use Recreational Drug Use: No Smoking Status: Never a Smoker 2nd Hand Smoke Exposure: No Recent Foreign Travel: No Contact w/Someone Who Travel: No Recent Infectious Disease Expo: No Recent Hopitalizations: No Physical Abuse: No Sexual Abuse: No Mistreated: No Fear: No Immunizations Up To Date Date of Pneumonia Vaccine: Apr 09, 2019 Seasonal Allergies Seasonal Allergies: No Past Medical History Surgeries: Yes CABG, Pacemaker Respiratory: No Cardiac: Yes Heart Attack, Heart Murmur, High Cholesterol, Hypertension Neurological: Yes Dementia Genitourinary: No Gastrointestinal: No Musculoskeletal: No Endocrine: Yes Hypothyroidsim HEENT: No Cancer: No Psychosocial: No Integumentary: No Blood Disorders: No Family Medical History Heart Disease, Other Conditions/Hx (Mother had Alzheimers) Review of Systems Constitutional: No: Fever, Chills, Weakness ENT: No: Nose congestion, Throat pain Respiratory: No: Cough, Shortness of breath Cardiovascular: No: Chest Pain, Palpitations, Lt Headedness Gastrointestinal: No: Nausea, Abdominal Pain, Diarrhea, Constipation, Melena (none reported by nursing), Hematochezia (none reported by nursing) Genitourinary: No Dysuria; Incontinence (reported by nurse) Neurological: No: Weakness, Numbness Sepsis Event Evaluation Height, Weight, BMI Height: '" Weight: lbs. oz. kg; 24.00 BMI Method: Exam Exam Vital Signs Date Time Temp Pulse Resp B/P (MAP) Pulse Ox O2 Delivery O2 Flow Rate FiO2 04/11/20 04:36 36.5 04/11/20 04:00 94 Room Air 04/11/20 04:00 60 10 126/64 (84) 95 Room Air 04/11/20 03:00 60 11 111/63 (79) 95 Room Air 04/11/20 02:00 60 9 117/83 (94) 95 Room Air 04/11/20 01:00 60 12 129/66 (87) 95 Room Air 04/11/20 01:00 60 04/11/20 00:09 36.6 04/11/20 00:00 94 Room Air 04/11/20 00:00 60 9 124/65 (84) 96 Room Air 04/10/20 23:00 60 14 131/64 (86) 95 Room Air 04/10/20 22:00 72 12 125/75 (92) 100 Room Air 04/10/20 21:00 60 10 143/72 (95) 95 Room Air 04/10/20 20:13 100 Room Air 04/10/20 20:00 60 10 139/70 (93) 96 Room Air 04/10/20 19:51 36.9 Room Air 100.00 04/10/20 19:00 60 10 145/82 (103) 100 Room Air 04/10/20 19:00 60 04/10/20 18:00 60 10 138/78 (98) 96 Room Air 04/10/20 17:00 60 10 116/78 (91) 96 Room Air 04/10/20 16:30 61 04/10/20 16:00 Room Air 04/10/20 16:00 36.4 66 16 140/84 (102) 97 Room Air 04/10/20 15:19 36.4 60 15 102/67 (79) 95 Room Air 04/10/20 13:42 36.0 63 14 90/74 (79) 93 Room Air I & O 04/11/20 07:00 Intake Total 1000 ml Balance 1000 ml Height & Weight Height: '" Weight: lbs. oz. kg; 24.00 BMI Method: General Appearance: No Apparent Distress, Chronically ill HEENT: PERRL/EOMI; No Scleral Icterus (L), No Scleral Icterus (R) Neck: Normal Inspection, Non Tender, Supple Respiratory: Lungs Clear, Normal Breath Sounds, No Accessory Muscle Use, No Respiratory Distress Cardiovascular: Regular Rate, Rhythm, No Edema, Normal Peripheral Pulses, Systolic Murmur Capillary Refill: Less Than 3 Seconds Peripheral Pulses: 2+ Dorsalis Pedis (R), 2+ Left Dors-Pedis (L), 2+ Radial Pulses (R), 2+ Radial Pulses (L) Gastrointestinal: normal bowel sounds, non tender, soft, no organomegaly Extremity: Normal Inspection, Non Tender, No Calf Tenderness, No Pedal Edema Neurologic/Psychiatric: Alert; No Oriented x3, No Normal Mood/Affect; Other (tremor) Skin: Normal Color, Warm/Dry Results Lab Laboratory Tests 04/10/20 13:45 04/10/20 16:25 04/11/20 03:15 Assessment/Plan Assessment/Plan GI Bleed - general surgery consulted, discussing plan with family - hypotension improved, may not have tachycardia due to pacemaker Hypotension - improved with IVF, on 150 ml/hr LR - 126/84 at latest check Anemia - Hgb 9.2, continue to monitor Hypokalemia - K 3.2, Mg 1.6, on K and Mg replacement Hypothyroid - consider resuming home medication Alzheimer's Dementia - consider resuming home medication Hx CAD, CABG, [place] - consider resuming home medication, except blood thinning medication BLANCO SMALL DO 04/11/20 0610: History of Present Illness History of Present Illness Time Seen by Provider: 06:05 Allergies and Home Medications Allergies Coded Allergies: lisinopril (Verified Allergy, Unknown, 04/10/20) Review of Systems Time Seen by Provider: 06:06 Assessment/Plan Assessment/Plan acute GI Bleed BRBPR - probably lower GIB - Surgery following Hypotension- resolved - Monitor Anemia - Hgb 9.2, continue to monitor Hypokalemia, hypomag - replace Hypothyroid -home meds Alzheimer's Dementia Hx CAD, CABG, [place] C[employer] MED STUDENT Apr 11, 2020 04:58 BLANCO SMALL DO Apr 11, 2020 06:10
[2020-04-11] MEDS ORDERED: MAGNESIUM 1 GM/100 ML IVPB 100 ML IV SCH (06:00)
[2020-04-11] MEDS ORDERED: POTASSIUM CL 10MEQ/50ML IVPB 50 ML IV SCH ×2 (06:00→06:15)
[2020-04-11] MEDS ORDERED: KCL 20 MEQ TAB (K-DUR) PO SCH (06:00)
--- NOTE | 2020-04-11 08:28 | Diagnostic Imaging Report ---
HISTORY: Gastrointestinal bleeding. COMPARISON: 05/24/2019 TECHNIQUE: Frontal view of the chest. FINDINGS: Lung volumes are low. No focal consolidation is seen. There is no pleural effusion or pneumothorax. Pulmonary markings are mildly prominent which is thought to be due to the lower lung volumes. Sternotomy wires and post-CABG changes are seen. Left-sided pacemaker leads are in stable position. The cardiac silhouette is stable in size. There is posttraumatic deformity of the left clavicle. IMPRESSION: 1. Low lung volumes with no acute pulmonary abnormality seen. Dictated by: Dictated on workstation # [id number]
[2020-04-11] MEDS ORDERED: FURO20TA4 PO (08:41)
[2020-04-11] MEDS ORDERED: RISP0.5T3 PO (08:41)
[2020-04-11] MEDS ORDERED: IBUP-1780 PO (08:41)
[2020-04-11] MEDS ORDERED: ONDA4TAB11 SL (08:41)
[2020-04-11] MEDS ORDERED: METO50TA7 PO (08:41)
[2020-04-11] MEDS ORDERED: CYAN50TA3 PO (08:41)
[2020-04-11] MEDS ORDERED: DIPH25CA48 PO (08:41)
[2020-04-11] MEDS ORDERED: LEVO150T6 PO (08:41)
[2020-04-11] MEDS ORDERED: ASPI-1238 PO (08:41)
[2020-04-11] MEDS ORDERED: CITA20TA9 PO (08:41)
[2020-04-11] MEDS ORDERED: MEMA10TA57 PO (08:41)
[2020-04-11] MEDS ORDERED: MORP100S3 PO (08:41)
[2020-04-11] MEDS ORDERED: NITR0.4T SL (08:41)
[2020-04-11] MEDS ORDERED: RISP0.5T21 PO (08:41)
[2020-04-11] MEDS ORDERED: HYOS-6 SL (08:41)
[2020-04-11] MEDS ORDERED: HYDR28.336 TOP (08:41)
[2020-04-11] MEDS ORDERED: LOSA25TA41 PO (08:41)
[2020-04-11] MEDS ORDERED: ATOR40TA70 PO (08:41)
[2020-04-11] MEDS ORDERED: DONE10TA41 PO (08:41)
[2020-04-11] MEDS ORDERED: HALO0.5T PO (08:41)
[2020-04-11] MEDS ORDERED: POLY238P32 PO (08:41)
[2020-04-11] MEDS ORDERED: LIDO76.5 TOP (08:41)
[2020-04-11] MEDS ORDERED: LORA-404 SL (08:41)
[2020-04-11] MEDS ORDERED: CETI10TA17 PO (08:41)
[2020-04-11] MEDS: PANTOPRAZOLE 40 MG (PROTONIX) VIAL IV SCH ×2 (08:43→19:58)
--- NOTE | 2020-04-11 08:56 | Progress Note - Surgery ---
[employer] STUDENT 04/11/20 0856: Subjective Date Seen by a Provider: Apr 11, 2020 Time Seen by a Provider: 08:40 Subjective/Events-last exam pt was sitting up in bed. pt states that he is having nausea and vomiting. pt denies any abdominal pain. per nurse, pt has not vomited and did not have any bowel movements last night. Review of Systems General: No Chills, No Fatigue Pulmonary: No Dyspnea, No Cough Gastrointestinal: Nausea, Vomiting; No: Abdominal Pain Focused Exam Respiratory: Chest Non Tender, Lungs Clear, Normal Breath Sounds, No Accessory Muscle Use, No Respiratory Distress Cardiovascular: Regular Rate, Rhythm, Diastolic Murmur Peripheral Pulses: 2+ Carotid (R), 2+ Carotid (L), 2+ Dorsalis Pedis (R), 2+ Left Dors-Pedis (L), 2+ Radial Pulses (R), 2+ Radial Pulses (L) Skin: normal color, warm/dry; No diaphoresis Objective Exam Vital Signs Date Time Temp Pulse Resp B/P (MAP) Pulse Ox O2 Delivery O2 Flow Rate FiO2 04/11/20 06:00 60 8 121/67 (85) 94 Room Air 04/11/20 05:00 60 16 126/66 (86) 95 Room Air 04/11/20 04:36 36.5 04/11/20 04:00 94 Room Air 04/11/20 04:00 60 10 126/64 (84) 95 Room Air 04/11/20 03:00 60 11 111/63 (79) 95 Room Air 04/11/20 02:00 60 9 117/83 (94) 95 Room Air 04/11/20 01:00 60 12 129/66 (87) 95 Room Air 04/11/20 01:00 60 04/11/20 00:09 36.6 04/11/20 00:00 94 Room Air 04/11/20 00:00 60 9 124/65 (84) 96 Room Air 04/10/20 23:00 60 14 131/64 (86) 95 Room Air 04/10/20 22:00 72 12 125/75 (92) 100 Room Air 04/10/20 21:00 60 10 143/72 (95) 95 Room Air 04/10/20 20:13 100 Room Air 04/10/20 20:00 60 10 139/70 (93) 96 Room Air 04/10/20 19:51 36.9 Room Air 100.00 04/10/20 19:00 60 10 145/82 (103) 100 Room Air 04/10/20 19:00 60 04/10/20 18:00 60 10 138/78 (98) 96 Room Air 04/10/20 17:00 60 10 116/78 (91) 96 Room Air 04/10/20 16:30 61 04/10/20 16:00 Room Air 04/10/20 16:00 36.4 66 16 140/84 (102) 97 Room Air 04/10/20 15:19 36.4 60 15 102/67 (79) 95 Room Air 04/10/20 13:42 36.0 63 14 90/74 (79) 93 Room Air I & O 04/11/20 07:00 Intake Total 1150 ml Balance 1150 ml Capillary Refill : Less Than 3 Seconds General Appearance: No Apparent Distress, Chronically ill HEENT: PERRL/EOMI; No Scleral Icterus (L), No Scleral Icterus (R) Neck: Non Tender; No Lymphadenopathy (L), No Lymphadenopathy (R) Respiratory: Chest Non Tender, Lungs Clear, Normal Breath Sounds, No Accessory Muscle Use, No Respiratory Distress Cardiovascular: Regular Rate, Rhythm, Normal Peripheral Pulses, Diastolic Murmur Peripheral Pulses: 2+ Carotid (R), 2+ Carotid (L), 2+ Dorsalis Pedis (R), 2+ Left Dors-Pedis (L), 2+ Radial Pulses (R), 2+ Radial Pulses (L) Gastrointestinal: normal bowel sounds, non tender, soft Extremity: Normal Capillary Refill, No Pedal Edema Neurologic/Psychiatric: Alert; No Oriented x3, No Normal Mood/Affect; cloth doffer II- XII Norm as Tested, Disoriented Skin: Normal Color, Warm/Dry; No Diaphoresis Lymphatic: No Adenopathy Results Lab Laboratory Tests 04/10/20 13:45: White Blood Count 11.6H, Red Blood Count 3.95L, Hemoglobin 11.4L, Hematocrit 35L , Mean Corpuscular Volume 89, Mean Corpuscular Hemoglobin 29, Mean Corpuscular Hemoglobin Concent 32, Red Cell Distribution Width 13.8, Platelet Count 217, Mean Platelet Volume 9.6, Neutrophils (%) (Auto) 53, Lymphocytes (%) (Auto) 40, Monocytes (%) (Auto) 6, Eosinophils (%) (Auto) 1, Basophils (%) (Auto) 0, Neutrophils # (Auto) 6.2, Lymphocytes # (Auto) 4.6H, Monocytes # (Auto) 0.7, Eosinophils # (Auto) 0.1, Basophils # (Auto) 0.0, Prothrombin Time 14.1, INR Comment 1.1, Activated Partial Thromboplast Time 24, Sodium Level 140, Potassium Level 3.6, Chloride Level 102, Carbon Dioxide Level 28, Anion Gap 10, Blood Urea Nitrogen 21H, Creatinine 1.00, Estimat Glomerular Filtration Rate > 60, BUN/Creatinine Ratio 21, Glucose Level 131H, Calcium Level 8.6, Corrected Calcium 8.8, Total Bilirubin 0.3, Aspartate Amino Transf (AST/SGOT) 14, Alanine Aminotransferase (ALT/SGPT) 16, Alkaline Phosphatase 76, Total Protein 6.0L, Albumin 3.7 04/10/20 16:25: White Blood Count 9.9, Red Blood Count 3.69L, Hemoglobin 10.6L, Hematocrit 33L, Mean Corpuscular Volume 89, Mean Corpuscular Hemoglobin 29, Mean Corpuscular Hemoglobin Concent 32, Red Cell Distribution Width 14.2, Platelet Count 188, Mean Platelet Volume 9.9, Neutrophils (%) (Auto) 49, Lymphocytes (%) (Auto) 41, Monocytes (%) (Auto) 8, Eosinophils (%) (Auto) 2, Basophils (%) (Auto) 0, Neutrophils # (Auto) 4.8, Lymphocytes # (Auto) 4.0, Monocytes # (Auto) 0.8, Eosinophils # (Auto) 0.2, Basophils # (Auto) 0.0, Neutrophils % (Manual) 44, Lymphocytes % (Manual) 49, Monocytes % (Manual) 6, Basophils % (Manual) 1, Blood Morphology Comment NORMAL 04/11/20 03:15: White Blood Count 8.6, Red Blood Count 3.25L, Hemoglobin 9.2L, Hematocrit 29L, Mean Corpuscular Volume 88, Mean Corpuscular Hemoglobin 28, Mean Corpuscular Hemoglobin Concent 32, Red Cell Distribution Width 14.0, Platelet Count 175, Mean Platelet Volume 10.1, Neutrophils (%) (Auto) 43, Lymphocytes (%) (Auto) 47H , Monocytes (%) (Auto) 8, Eosinophils (%) (Auto) 2, Basophils (%) (Auto) 0, Neutrophils # (Auto) 3.7, Lymphocytes # (Auto) 4.0, Monocytes # (Auto) 0.7, Eosinophils # (Auto) 0.2, Basophils # (Auto) 0.0, Sodium Level 140, Potassium Level 3.2L, Chloride Level 108H, Carbon Dioxide Level 25, Anion Gap 7, Blood Urea Nitrogen 14, Creatinine 0.76, Estimat Glomerular Filtration Rate > 60, BUN/Creatinine Ratio 18, Glucose Level 88, Calcium Level 7.8L, Phosphorus Level 3.2, Magnesium Level 1.6 Assessment/Plan Assessment/Plan Assessment/Plan Anemia GI bleed Hypotension CAD Alzheimer's Clinical Quality Measures DVT/VTE Risk/Contraindication: Risk Factor Score Per Nursin RFS Level Per Nursing on Admit: 2=Moderate CEZAR HERNANDEZ DO 04/11/20 1618: Subjective Time Seen by a Provider: 12:30 Subjective/Events-last exam Pt seen and examined, denies any problems. is at bedside and we had a long discussion. Review of Systems General: No Chills, No Fatigue Pulmonary: No Dyspnea, No Cough Cardiovascular: No: Chest Pain, Palpitations Gastrointestinal: Nausea, Vomiting; No: Abdominal Pain Objective Exam General Appearance: No Apparent Distress, WD/WN HEENT: PERRL/EOMI, Moist Mucous Membranes Respiratory: Chest Non Tender, Lungs Clear, Normal Breath Sounds, No Accessory Muscle Use, No Respiratory Distress Cardiovascular: Regular Rate, Rhythm, Normal Peripheral Pulses Gastrointestinal: non tender, soft, no organomegaly Neurologic/Psychiatric: Disoriented Skin: Normal Color, Warm/Dry Assessment/Plan Assessment/Plan Assessment/Plan Anemia GI Bleed Hypotension - resolved Advanced Alzheimer's I had long discussion with , again going over options. She does not want any surgery and is thinking she wants to put him back on hospice. I had the hospice nurse talk to her and answer questions about what can be done and not done when a pt is on hospice. All questions answered to her satisfaction. Supervisory-Addendum Brief Verification & Attestation Participated in pt care: history, MDM, physical Personally performed: exam, history, MDM Care discussed with: Medical Student Procedures: n/a Verification and Attestation of Medical Student E/M Service A medical student performed and documented this service. I then reviewed and verified all information documented by the medical student and made modifications to such information, when appropriate. I personally performed a physical exam, medical decision making and then discussed any differences between the notes and made revisions as necessary to create one note. Cezar Hernandez , 04/11/20 , 16:18 [employer] Apr 11, 2020 08:56 CEZAR HERNANDEZ DO Apr 11, 2020 16:18
--- NOTE | 2020-04-11 09:41 | History & Physical-Hospitalist ---
History of Present Illness HPI/Chief Complaint CC: GI bleed HPI: This is a 70yoWM clinic Pt of Dr. Morales who has a PMH of severe dementia, depending on his for care, who lives at home, who presents with black stools and hypotension and weakness. Dr. Hernandez was consulted, not really willing to have EGD and colonoscopy for aggressive care. Transfusion is necessary. Pt overall has no new complaints and nurse has no new complaints or concerns. BP is much improved. Source: patient, RN/MD Exam Limitations: other (dementia) Date Seen 04/11/20 Time Seen by a Provider: 09:00 Attending Physician Rosie Aguirre Pankaj K MD Referring Physician Date of Admission Apr 10, 2020 at 16:02 Home Medications & Allergies Home Medications Reviewed patient Home Medication Reconciliation performed by pharmacy medication reconciliations ophthalmic medical technician and/or nursing. Patients Allergies have been reviewed. Allergies Allergies Coded Allergies lisinopril (Verified Allergy, Unknown, 04/10/20) Past Dwjnfgk-[id number]-Mtivzm Hx Past Med/Social Hx: Reviewed Nursing Past Med/Soc Hx, Reviewed and Corrections made Patient Social History Marrital Status: Employed/Student: retired Alcohol Use: Denies Use Recreational Drug Use: No Smoking Status: Unknown if Ever Smoked 2nd Hand Smoke Exposure: No Recent Foreign Travel: No Contact w/other who traveled: No Recent Hopitalizations: No Recent Infectious Disease Expo: No Immunizations Up To Date Date of Pneumonia Vaccine: Apr 09, 2019 Seasonal Allergies Seasonal Allergies: No Past Medical History Surgeries: CABG, Pacemaker Cardiac: Heart Attack, Heart Murmur, High Cholesterol, Hypertension Neurological: Dementia Endocrine: Hypothyroidsim History of Blood Disorders: No Family History Heart Disease, Other Conditions/Hx (Mother had Alzheimers) Review of Systems Constitutional: see HPI, malaise, weakness Gastrointestinal: melena Physical Exam Physical Exam Vital Signs Vital Signs - First Documented 04/10/20 04/10/20 13:42 19:51 Temp 36.0 Pulse 63 Resp 14 B/P (MAP) 90/74 (79) Pulse Ox 93 O2 Delivery Room Air O2 Flow Rate 100.00 Capillary Refill : Less Than 3 Seconds Height, Weight, BMI Height: '" Weight: lbs. oz. kg; 24.00 BMI Method: General Appearance: No Apparent Distress, Chronically ill Eyes: Right Eye Normal Inspection, Right Eye PERRL HEENT: PERRL/EOMI, Normal ENT Inspection, Pharynx Normal, Moist Mucous Membranes Neck: Full Range of Motion, Normal Inspection, Non Tender Respiratory: Lungs Clear, Normal Breath Sounds, No Accessory Muscle Use, No Respiratory Distress Cardiovascular: Regular Rate, Rhythm, No Edema Gastrointestinal: Normal Bowel Sounds, No Organomegaly, No Pulsatile Mass, Non Tender, Soft Back: Normal Inspection, No CVA Tenderness, No Vertebral Tenderness Extremity: Normal Capillary Refill, Normal Inspection, Normal Range of Motion, Non Tender, No Calf Tenderness, No Pedal Edema Neurologic/Psychiatric: Alert, Normal Mood/Affect, Disoriented Skin: Normal Color, Warm/Dry Lymphatic: No Adenopathy Results Results/Procedures Labs Laboratory Tests 04/10/20 13:45 04/10/20 16:25 04/11/20 03:15 04/11/20 12:09 04/11/20 18:07 Patient resulted labs reviewed. Assessment/Plan Admission Diagnosis Assessment: GI bleed Severe dementia Acute blood loss anemia Plan: Appreciate Dr. Hernandez Monitor blood pressure closely Dementia is severe Hospice re-enrollment at [place] Admission Status: Inpatient Order (span 2 midnights) Reason for Inpatient Admission: gib Diagnosis/Problems Diagnosis/Problems (1) GI bleed Clinical Quality Measures DVT/VTE Risk/Contraindication: Risk Factor Score Per Nursin RFS Level Per Nursing on Admit: 2=Moderate ROSIE AGUIRRE DO Apr 11, 2020 09:41
[2020-04-11 12:16] LABS: HEMOGLOBIN 9.3 g/dL (13.3-17.7)
[2020-04-11 18:13] LABS: HEMOGLOBIN 10.1 g/dL (13.3-17.7)
[2020-04-12 00:30] VITALS: BP 125/63
[2020-04-12 04:26] VITALS: BP 140/69
[2020-04-12 04:53] LABS: BASOPHILS % (AUTO) 0 % (0-10); EOSINOPHILS # (AUTO) 0.3 10^3/uL (0.0-0.3); EOSINOPHILS % (AUTO) 3 % (0-10); HEMATOCRIT 30 % (40-54); HEMOGLOBIN 9.8 g/dL (13.3-17.7); LYMPHOCYTES # (AUTO) 5.1 10^3/uL (1.0-4.0); LYMPHOCYTES % (AUTO) 53 % (12-44); MEAN CORPUSCULAR HEMOGLOBIN 29 pg (25-34); MEAN CORPUSCULAR HGB CONC 33 g/dL (32-36); MEAN CORPUSCULAR VOLUME 88 fL (80-99); MEAN PLATELET VOLUME 9.8 fL (9.0-12.2); MONOCYTES # (AUTO) 0.7 10^3/uL (0.0-1.0); MONOCYTES % (AUTO) 7 % (0-12); NEUTROPHILS # (AUTO) 3.6 10^3/uL (1.8-7.8); NEUTROPHILS % (AUTO) 37 % (42-75); PLATELET COUNT 191 10^3/uL (130-400); WHITE BLOOD COUNT 9.7 10^3/uL (4.3-11.0)
[2020-04-12 05:13] LABS: ALANINE AMINOTRANSFERASE 17 U/L (0-55); ALBUMIN 3.4 GM/DL (3.2-4.5); ALKALINE PHOSPHATASE 66 U/L (40-136); BILIRUBIN,TOTAL 0.6 MG/DL (0.1-1.0); BUN/CREATININE RATIO 13; CALCIUM 8.2 MG/DL (8.5-10.1); CARBON DIOXIDE 27 MMOL/L (21-32); CHLORIDE 103 MMOL/L (98-107); CREATININE SERUM 0.76 MG/DL (0.60-1.30); GFR ESTIMATED > 60; GLUCOSE 83 MG/DL (70-105); POTASSIUM 3.2 MMOL/L (3.6-5.0); SODIUM 140 MMOL/L (135-145); TOTAL PROTEIN 5.4 GM/DL (6.4-8.2)
--- NOTE | 2020-04-12 07:34 | Progress Note - Surgery ---
[employer] 04/12/20 0734: Subjective Date Seen by a Provider: Apr 12, 2020 Time Seen by a Provider: 07:15 Subjective/Events-last exam pt was sleeping in bed. pt denies any nausea, vomiting, or abdominal pain. pt is still disoriented because of Alzheimer disease. when asked if patient wanted to return home, he looked at me and laughed. hemoglobin level have stabilized. Review of Systems General: No Chills, No Fatigue Pulmonary: No Dyspnea, No Cough Cardiovascular: No: Chest Pain, Palpitations Gastrointestinal: No: Nausea, Vomiting, Abdominal Pain, Diarrhea, Constipation Focused Exam Respiratory: Chest Non Tender, Lungs Clear, Normal Breath Sounds, No Accessory Muscle Use, No Respiratory Distress Cardiovascular: Regular Rate, Rhythm, Diastolic Murmur Peripheral Pulses: 2+ Carotid (R), 2+ Carotid (L), 2+ Dorsalis Pedis (R), 2+ Left Dors-Pedis (L), 2+ Radial Pulses (R), 2+ Radial Pulses (L) Skin: normal color, warm/dry; No diaphoresis Objective Exam Vital Signs Date Time Temp Pulse Resp B/P (MAP) Pulse Ox O2 Delivery O2 Flow Rate FiO2 04/12/20 04:26 36.8 60 18 140/69 (92) 96 Room Air 04/12/20 00:30 36.3 60 18 125/63 (83) 95 Room Air 04/11/20 20:00 Room Air 04/11/20 19:42 37.5 66 18 154/76 (102) 93 Room Air 04/11/20 16:00 Room Air 04/11/20 16:00 37.3 04/11/20 15:00 60 11 145/74 (97) 95 Room Air 04/11/20 14:00 60 11 136/68 (90) 96 Room Air 04/11/20 13:00 60 11 132/65 (87) 97 Room Air 04/11/20 12:41 60 04/11/20 12:00 Room Air 04/11/20 12:00 60 12 129/69 (89) 96 Room Air 04/11/20 11:00 60 11 136/69 (91) 96 Room Air 04/11/20 10:00 68 11 123/66 (85) 94 Room Air 04/11/20 09:00 69 18 122/74 (90) 91 Room Air 04/11/20 08:45 37.1 04/11/20 08:00 61 25 112/82 (92) 96 Room Air 04/11/20 08:00 Room Air I & O 04/12/20 07:00 Intake Total 300 ml Balance 300 ml Capillary Refill : Less Than 3 Seconds General Appearance: No Apparent Distress, Chronically ill HEENT: PERRL/EOMI; No Scleral Icterus (L), No Scleral Icterus (R) Neck: Non Tender; No Lymphadenopathy (L), No Lymphadenopathy (R) Respiratory: Chest Non Tender, Lungs Clear, Normal Breath Sounds, No Accessory Muscle Use, No Respiratory Distress Cardiovascular: Regular Rate, Rhythm, Diastolic Murmur Peripheral Pulses: 2+ Carotid (R), 2+ Carotid (L), 2+ Dorsalis Pedis (R), 2+ Left Dors-Pedis (L), 2+ Radial Pulses (R), 2+ Radial Pulses (L) Gastrointestinal: normal bowel sounds, non tender, soft Extremity: Normal Capillary Refill, No Pedal Edema Neurologic/Psychiatric: Alert, Normal Mood/Affect, english faculty member II-XII Norm as Tested, Disoriented Skin: Normal Color, Warm/Dry; No Diaphoresis Lymphatic: No Adenopathy Results Lab Laboratory Tests 04/11/20 12:09: Hemoglobin 9.3L, Hematocrit 28L 04/11/20 18:07: Hemoglobin 10.1L, Hematocrit 31L 04/12/20 04:20: Hemoglobin 9.8L, Hematocrit 30L, White Blood Count 9.7, Red Blood Count 3.40L, Mean Corpuscular Volume 88, Mean Corpuscular Hemoglobin 29, Mean Corpuscular Hemoglobin Concent 33, Red Cell Distribution Width 13.5, Platelet Count 191, Mean Platelet Volume 9.8, Immature Granulocyte % (Auto) 0, Neutrophils (%) (Auto) 37L, Lymphocytes (%) (Auto) 53H, Monocytes (%) (Auto) 7, Eosinophils (%) (Auto) 3, Basophils (%) (Auto) 0, Neutrophils # (Auto) 3.6, Lymphocytes # (Auto) 5.1H, Monocytes # (Auto) 0.7, Eosinophils # (Auto) 0.3, Basophils # (Auto) 0.0, Immature Granulocyte # (Auto) 0.0, Sodium Level 140, Potassium Level 3.2L, Chloride Level 103, Carbon Dioxide Level 27, Anion Gap 10, Blood Urea Nitrogen 10, Creatinine 0.76, Estimat Glomerular Filtration Rate > 60, BUN/Creatinine Ratio 13, Glucose Level 83, Calcium Level 8.2L, Corrected Calcium 8.7, Total Bilirubin 0.6, Aspartate Amino Transf (AST/SGOT) 16, Alanine Aminotransferase (ALT/SGPT) 17, Alkaline Phosphatase 66, Total Protein 5.4L, Albumin 3.4 Microbiology 04/10/20 MRSA Screen - Final, Complete MRSA not isolated Assessment/Plan Assessment/Plan Assessment/Plan Anemia GI Bleed Hypotension - resolved Advanced Alzheimer's Discharge pt back to [facility] Clinical Quality Measures DVT/VTE Risk/Contraindication: Risk Factor Score Per Nursin RFS Level Per Nursing on Admit: 2=Moderate CEZAR HERNANDEZ DO 04/12/20 1424: Subjective Time Seen by a Provider: 12:09 Subjective/Events-last exam Pt seen and examined, about to leave for home Review of Systems General: No Chills, No Fatigue Pulmonary: No Dyspnea, No Cough Cardiovascular: No: Chest Pain, Palpitations Gastrointestinal: No: Nausea, Vomiting, Abdominal Pain Objective Exam General Appearance: No Apparent Distress HEENT: PERRL/EOMI Respiratory: Lungs Clear, Normal Breath Sounds, No Accessory Muscle Use, No Respiratory Distress Cardiovascular: Regular Rate, Rhythm, Systolic Murmur Gastrointestinal: non tender, soft, no organomegaly Neurologic/Psychiatric: Disoriented Assessment/Plan Assessment/Plan Assessment/Plan Anemia GI Bleed Pt and family wish to monitor Hemoglobin and possibly transfuse if needed; otherwise pt is in hospice care. Supervisory-Addendum Brief Verification & Attestation Participated in pt care: history, MDM, physical Personally performed: exam, history, MDM Care discussed with: Medical Student Procedures: n/a Verification and Attestation of Medical Student E/M Service A medical student performed and documented this service. I then reviewed and verified all information documented by the medical student and made modifications to such information, when appropriate. I personally performed a physical exam, medical decision making and then discussed any differences between the notes and made revisions as necessary to create one note. Cezar Hernandez , 04/12/20 , 14:24 [employer] Apr 12, 2020 07:34 CEZAR HERNANDEZ DO Apr 12, 2020 14:24
[2020-04-12 08:00] VITALS: BP 142/70
[2020-04-12] MEDS: PANTOPRAZOLE 40 MG (PROTONIX) VIAL IV SCH (08:33)
--- NOTE | 2020-04-12 10:53 | Discharge Summary ---
Discharge Summary Hospital Course Was the Problem List Reviewed?: Yes Problems/Dx: (1) GI bleed Hospital Course Date of Admission: Apr 10, 2020 at 16:02 Admission Diagnosis : Family Physician/Provider: David Morales MD Date of Discharge: 04/12/20 Discharge Diagnosis: Assessment: GI bleed Severe dementia Acute blood loss anemia Plan: Appreciate Dr. Hernandez Monitor blood pressure closely Dementia is severe Hospice re-enrollment at [place] Hospital Course: Hospital Course: Pt had an uneventful hospital course. He was admitted after he revoked hospice to be hospitalized for bloody stools. Pt did stabilize, did have some decline in hemoglobin but did not require blood transfusion but not willing ot have EGD or colonoscopy which it reasonable due to significant severe dementia. He was discharged in stable condition back on hospice and will be monitored closely and supported during his end of life status. Labs and Pending Lab Test: Laboratory Tests 04/11/20 12:09: Hemoglobin 9.3L, Hematocrit 28L 04/11/20 18:07: Hemoglobin 10.1L, Hematocrit 31L 04/12/20 04:20: Hemoglobin 9.8L, Hematocrit 30L, White Blood Count 9.7, Red Blood Count 3.40L, Mean Corpuscular Volume 88, Mean Corpuscular Hemoglobin 29, Mean Corpuscular Hemoglobin Concent 33, Red Cell Distribution Width 13.5, Platelet Count 191, Mean Platelet Volume 9.8, Immature Granulocyte % (Auto) 0, Neutrophils (%) (Auto) 37L, Lymphocytes (%) (Auto) 53H, Monocytes (%) (Auto) 7, Eosinophils (%) (Auto) 3, Basophils (%) (Auto) 0, Neutrophils # (Auto) 3.6, Lymphocytes # (Auto) 5.1H, Monocytes # (Auto) 0.7, Eosinophils # (Auto) 0.3, Basophils # (Auto) 0.0, Immature Granulocyte # (Auto) 0.0, Sodium Level 140, Potassium Level 3.2L, Chloride Level 103, Carbon Dioxide Level 27, Anion Gap 10, Blood Urea Nitrogen 10, Creatinine 0.76, Estimat Glomerular Filtration Rate > 60, BUN/Creatinine Ratio 13, Glucose Level 83, Calcium Level 8.2L, Corrected Calcium 8.7, Total Bilirubin 0.6, Aspartate Amino Transf (AST/SGOT) 16, Alanine Aminotransferase (ALT/SGPT) 17, Alkaline Phosphatase 66, Total Protein 5.4L, Albumin 3.4 04/12/20 10:35: Coronavirus 2019 ([facility]) [Pending] Microbiology 04/10/20 MRSA Screen - Final, Complete MRSA not isolated Home Meds Active Reported Aspercreme (Lidocaine HCl) 76.5 Gm Cream..g. 1 Applic TOP Q2H PRN Ondansetron Odt (Ondansetron) 4 Mg Tab.rapdis 4 Mg SL Q8H PRN [id number] (Polyethylene Glycol 3350) 238 Gm Powder 17 Gm PO DAILY Risperidone 0.5 Mg Tablet 0.25 Mg PO HS TAKES OF A 0.5MG TAB Vitamin B-12 (Cyanocobalamin (Vitamin B-12)) 50 Mcg Tablet 50 Mcg PO MON,WED,FRI Risperdal (Risperidone) 0.5 Mg Tablet 0.5 Mg PO TID PRN Nitrostat (Nitroglycerin) 0.4 Mg Tab.subl 0.4 Mg SL UD PRN Donepezil HCl 10 Mg Tablet 10 Mg PO HS Aspirin EC (Aspirin) 81 Mg Tablet.dr 81 Mg PO HS Hyoscyamine Sulfate 0.125 Mg Tab.rapdis 0.125 Mg SL Q6H PRN Morphine Conc. 20mg/ml (Morphine Sulfate) 100 Mg/5 Ml Solution 0.5 Ml PO Q2H PRN Ativan (Lorazepam) 0.5 Mg Tablet 0.5 Mg SL Q4H PRN Haloperidol 0.5 Mg Tablet 0.5 Mg PO Q8H PRN Cetirizine HCl 10 Mg Tablet 10 Mg PO DAILY Memantine HCl 10 Mg Tablet 10 Mg PO BID Losartan Potassium 25 Mg Tablet 25 Mg PO DAILY Levothyroxine Sodium 150 Mcg Tablet 150 Mcg PO DAILY Citalopram HBr (Citalopram Hydrobromide) 20 Mg Tablet 20 Mg PO DAILY Metoprolol Succinate 50 Mg Tab.er.24h 50 Mg PO DAILY CHECK BLOOD PRESSURE PRIOR TO ADMINISTRATION Atorvastatin Calcium 40 Mg Tablet 40 Mg PO HS Ibuprofen 800 Mg Tablet 800 Mg PO TID Furosemide 20 Mg Tablet 40 Mg PO DAILY TAKES 2 (20MG) TABS Diphenhydramine HCl 25 Mg Capsule 25 Mg PO Q4H PRN Proctocort (Hydrocortisone) 28.4 Gm Cream..g. 1 Applic TOP QID PRN APPLYY TO FACE Assessment/Pt [facility] Discharge Planning: <30 minutes discharge planning Discharge Instructions Discharge Diet: No Restrictions Activity as Tolerated: Yes Discharge Physical Examination Vital Signs Vital Signs Date Time Temp Pulse Resp B/P (MAP) Pulse Ox O2 Delivery O2 Flow Rate FiO2 04/12/20 09:00 Room Air 04/12/20 08:00 36.4 59 16 142/70 (94) 97 04/10/20 19:51 100.00 General Appearance: No Apparent Distress, WD/WN Respiratory: Normal Breath Sounds Cardiovascular: Regular Rate, Rhythm Neurologic/Psychiatric: Alert, Disoriented Allergies: Coded Allergies: lisinopril (Verified Allergy, Unknown, 04/10/20) Discharge Summary Date of Admission Apr 10, 2020 at 16:02 Date of Discharge Discharge Date: Apr 12, 2020 Admission Diagnosis Assessment: GI bleed Severe dementia Acute blood loss anemia Plan: Appreciate Dr. Hernandez Monitor blood pressure closely Dementia is severe Hospice re[place]enrollment at [place] Discharge Diagnosis (1) GI bleed Clinical Quality Measures DVT/VTE Risk/Contraindication: Risk Factor Score Per Nursin RFS Level Per Nursing on Admit: 2=Moderate MORGAN WINTER DO Apr 12, 2020 10:53
== END 2020-04-12 12:10 | disposition hospice, home (50) | DRG 378 ==
LOC: EDUNIT# 13:40 → ER FS 13:41 → ICU 16:02 → 4TH 04-11 16:45
PROVIDERS: ADMIT Internal Medicine; ATTEND Internal Medicine
DX: K92.2 Gastrointestinal hemorrhage, unspecified (principal); D62 Acute posthemorrhagic anemia; I25.10 Atherosclerotic heart disease of native coronary artery without angina pectoris; I95.89 Other hypotension; E86.1 Hypovolemia; E87.6 Hypokalemia; G30.9 Alzheimer's disease, unspecified; F02.80 Dementia in other diseases classified elsewhere, unspecified severity, without behavioral disturbance, psychotic disturbance, mood disturbance, and anxiety; R01.1 Cardiac murmur, unspecified; I10 Essential (primary) hypertension; E03.9 Hypothyroidism, unspecified; I25.2 Old myocardial infarction; E78.00 Pure hypercholesterolemia, unspecified; R32 Unspecified urinary incontinence; Z95.0 Presence of cardiac pacemaker; Z95.1 Presence of aortocoronary bypass graft; Z79.82 Long term (current) use of aspirin; Z20.828 Contact with and (suspected) exposure to other viral communicable diseases
CPT/HCPCS: 36415; 71045; 80048; 80053; 83735; 84100; 85007; 85014; 85018; 85025; 85027; 85610; 85730; 86850; 86900; 86901; 87081; 87635

== ENCOUNTER → 2020-04-17 | Outpatient (CLI) | payer MEDICARE, OTHER ==
[~2020-04-17] MED LIST: ASPI-1238 PO; ATOR40TA70 PO; CETI10TA17 PO; CITA20TA9 PO; CYAN50TA3 PO; DIPH25CA48 PO; DONE10TA41 PO; FURO20TA4 PO; HALO0.5T PO; HYDR28.336 TOP; HYOS-6 SL; IBUP-1780 PO; LEVO150T6 PO; LIDO76.5 TOP; LORA-404 SL; LOSA25TA41 PO; MEMA10TA57 PO; METO50TA7 PO; MORP100S3 PO; NITR0.4T SL; ONDA4TAB11 SL; POLY238P32 PO; RISP0.5T21 PO; RISP0.5T3 PO
[2020-04-17 18:28] LABS: WHITE BLOOD COUNT 11.7 10^3/uL (4.3-11.0)
[2020-04-17 18:30] LABS: HEMOGLOBIN 5.7 G/DL (13.3-17.7); MEAN CORPUSCULAR HEMOGLOBIN 29 PG (25-34)
[2020-04-17 18:31] LABS: BASOPHILS % (AUTO) 0 % (0-10); EOSINOPHILS # (AUTO) 0.2 10^3/uL (0.0-0.3); EOSINOPHILS % (AUTO) 2 % (0-10); HEMATOCRIT 18 % (40-54); LYMPHOCYTES # (AUTO) 4.6 X 10^3 (1.0-4.0); LYMPHOCYTES % (AUTO) 30 % (12-44); MEAN CORPUSCULAR HGB CONC 29 G/DL (32-36); MEAN CORPUSCULAR VOLUME 89 FL (80-99); MEAN PLATELET VOLUME 10.1 FL (7.4-10.4); MONOCYTES # (AUTO) 0.8 X 10^3 (0.0-1.0); MONOCYTES % (AUTO) 6 % (0-12); NEUTROPHILS # (AUTO) 6.1 X 10^3 (1.8-7.8); NEUTROPHILS % (AUTO) 52 % (42-75); PLATELET COUNT 208 10^3/uL (130-400)
== END ==
LOC: LAB FS 16:43
PROVIDERS: ATTEND Family Medicine
DX: G30.0 Alzheimer's disease with early onset (principal); K92.2 Gastrointestinal hemorrhage, unspecified
CPT/HCPCS: 36415; 85025